=== PATIENT | male | born 1960 | race African-American/Black ===

== ENCOUNTER → 2019-04-09 | Outpatient (CLI) | payer BC ==
[~2019-04-09] MED LIST: IOHEXOL 240 MG/ML 50ML VIAL. PO ONE; IOHEXOL 300 MG/ML 75 ML VIAL. IV ONE
[2019-04-09 19:42] LABS: BASO % 0 % (0-3); EOS % 0 % (0-3); HEMATOCRIT 43.4 % (39.0-53.0); HEMOGLOBIN 14.1 g/dL (13.0-17.5); LYMPH # 0.4 x10^3/uL (1.0-4.8); LYMPH % 7 % (24-48); MEAN CORPUSCULAR HEMOGLOBIN 29 pg (25-35); MEAN CORPUSCULAR HGB CONC 33 g/dL (31-37); MEAN CORPUSCULAR VOLUME 89 fL (79-100); MONO # 0.4 x10^3/uL (0.0-1.1); MONO % 7 % (0-9); NEUT % 86 % (31-73); PLATELET COUNT 309 x10^3/uL (140-400); RED BLOOD COUNT 4.86 x10^6/uL (4.30-5.70); RED CELL DISTRIBUTION WIDTH 14.6 % (11.5-14.5); WHITE BLOOD COUNT 5.9 x10^3/uL (4.0-11.0)
[2019-04-09 19:52] LABS: ALBUMIN 4.2 g/dL (3.4-5.0); CALCIUM 9.2 mg/dL (8.5-10.1); GFR 92.2; POTASSIUM 3.9 mmol/L (3.5-5.1); TOTAL BILIRUBIN 0.5 mg/dL (0.2-1.0); TOTAL PROTEIN 8.5 g/dL (6.4-8.2)
--- NOTE | 2019-04-09 20:48 | RAD ---
Examination: CT of the abdomen pelvis with oral and IV contrast HISTORY: History of periumbilical pain, nausea, vomiting, diarrhea COMPARISON: None available Technique: Axial CT images of the abdomen pelvis were performed with oral and IV contrast. Coronal and sagittal reformats are performed. Exposure: One or more of the following individualized dose reduction techniques were utilized for this examination: 1. Automated exposure control 2. Adjustment of the mA and/or kV according to patient size 3. Use of iterative reconstruction technique. FINDINGS: Mild bibasilar lung airspace opacities likely atelectasis or infiltrates. No evidence of free air identified in the abdomen. The visualized liver, adrenals grossly appears unremarkable. The gallbladder is not identified. Calcified granulomas identified in the spleen. Mild fluid distended small bowel loops identified in the right lower quadrant of the abdomen with the enhancement of the small bowel loops with surrounding mild fat stranding likely enteritis. The appendix grossly appears unremarkable. Liquid stool identified in the colon. The bilateral kidneys enhance symmetrically. The visualized pancreas grossly appears unremarkable. The urinary bladder is mildly distended. Mild degenerative changes thoracolumbar spine. IMPRESSION: 1. Fluid distended small bowel loops identified in the right lower quadrant abdomen surrounding inflammatory fat stranding and mild enhancement of the wall likely enteritis. 2. Liquid stool identified in the colon likely diarrhea. Electronically signed by: Russell Nickerson MD (04/09/2019 8:45 PM) [facility]
== END | disposition home or self-care (01) ==
LOC: CT 18:30
PROVIDERS: ATTEND Family Medicine
DX: R14.0 Abdominal distension (gaseous) (principal); N32.89 Other specified disorders of bladder; D73.89 Other diseases of spleen
CPT/HCPCS: 36415; 74177; 80053; 85025; Q9966; Q9967

== ENCOUNTER → 2020-01-10 | Outpatient (CLI) | payer BC, OTHER ==
--- NOTE | 2020-01-10 10:11 | RAD ---
CT of the chest without contrast 01/10/2020 INDICATION: Shortness of breath. History of Covid 19 infection. COMPARISON STUDY: CT of the abdomen and pelvis April 09, 2019. TECHNIQUE: Multidetector CT imaging of the chest was performed without contrast. FINDINGS: Heart size is normal. No pericardial effusion is identified. Calcified right hilar lymph nodes noted. No pathologically enlarged mediastinal adenopathy is seen. No acute appearing interstitial and groundglass infiltrates are identified. No CT evidence for an acute viral pneumonia is identified. There is no pneumothorax or pleural effusion. Linear opacities in the lingula and left lower lobe are similar to comparison study. Linear area of consolidation in the medial basilar right lower lobe with areas of calcification noted. The areas only partially visualized on prior CT of the abdomen from March 2019. Visualized portions of this process are grossly stable. This is felt to most likely reflect scarring, with a component of chronic volume loss. A neoplastic etiology cannot be excluded based on available imaging. Recommend CT follow-up to ensure 2 years stability and/or PET CT for further characterization. Impression: Linear area of volume loss punctate areas of calcification the right lower lobe.This is felt to most likely reflect scarring, with a component of chronic volume loss. However, neoplastic etiology cannot be excluded based on available imaging. Recommend CT follow-up to ensure 2 years stability and/or PET CT for further characterization. CT DOSING PQRS STATEMENT: One or more of the following individualized dose reduction techniques were utilized for this examination: 1. Automated exposure control 2. Adjustment of the mA and/or kV according to patient size 3. Use of iterative reconstruction technique Electronically signed by: Joao Donald MD (01/10/2020 10:08 AM) [place] [id number]
== END | disposition home or self-care (01) ==
LOC: CT 09:15
PROVIDERS: ATTEND Internal Medicine Pulmonary Disease
DX: R06.02 Shortness of breath (principal)
CPT/HCPCS: 71250

== ENCOUNTER → 2020-01-21 | Outpatient (CLI) | payer BC, OTHER ==
--- NOTE | 2020-01-21 11:12 | RAD ---
MR#: [id number] Date of Study: 01/21/2020 Ordering Physician: RAMA CHANEL Referring Physician: MICHELE CARRION Tech: APPROVED REPORT Test Type: Exercise Stress Nurse/Tech: Victorino Becker Test Indications: Dyspnea Cardiac History: No known cardiac Resting Heart Rate: 82 bpm Resting Blood Pressure: 141/84mmHg Pretest Chest Pain: No chest pain Nurse/Tech Notes Pt has been short of breath since arturo Covid in August Stress Symptoms Dyspnea POST EXERCISE Reason for Termination: Dyspnea Target HR: 136 Max HR: 114 bpm 71% of Maximum Predicted HR: 160 bpm Exercise duration: 4:58 min:sec, 2 Stage Max Blood Pressure: 148/62mmHg Blood Pressure response to exercise: Normal blood pressure response during stress. Heart Rate response to exercise: Increase Chest Pain: No. Arrhythmia: No. ST Change: No. INTERPRETATION Stress EKG Conclusion: Baseline EKG showed sinus rhythm. No ischemic changes at peak stress. No arr hythmias. Conclusion 1. Treadmill exercise stress electrocardiogram did not show any diagnostic changes of ischemia. 2. However, patient achieved only 71% of predicted maximum heart rate, making the test inconclusive. Signed by : Swapnil Corea, Electronically Approved : 01/21/2020 11:12:04
--- NOTE | 2020-01-22 09:37 | CARD ---
MR#: [id number] Date of Study: 01/21/2020 Ordering Physician: RAMA CHANEL, Referring Physician: RAMA CHANEL, Tech: Jennifer Jordan APPROVED REPORT EXAM: Two-dimensional and M-mode echocardiogram with Doppler and color Doppler. Other Information Quality : AverageHR: 77bpm INDICATION Dyspnea 2D DIMENSIONS RVDd2.7 (2.9-3.5cm)Left Atrium(2D)2.9 (1.6-4.0cm) IVSd0.8 (0.7-1.1cm)Aortic Root(2D)4.1 (2.0-3.7cm) LVDd4.7 (3.9-5.9cm)LVOT Diameter2.3 (1.8-2.4cm) PWd0.8 (0.7-1.1cm)LVDs2.7 (2.5-4.0cm) FS (%) 42.3 %SV76.5 ml LVEF(%)73.3 (>50%) Aortic Valve AoV Peak Amish.116.3cm/sAoV VTI25.8cm AO Peak GR.5.4mmHgLVOT Peak Amish.93.1cm/s LVOT VTI 23.19cmAO Mean GR.3mmHg ACE (VMAX)3.69sv5ICT (VTI)3.79cm2 AI P 1/2 [id number] Mitral Valve MV E Rsxgcrai19.0cm/sMV E Peak Gr.2mmHg MV DECEL [id number] A Yjinpvuj15.1cm/s MV E Mean Gr.1mmHgE/A Ratio0.8 Pulmonary Valve PV Peak Dvwanygx62.9cm/sPV Peak Grad.2mmHg Tricuspid Valve TR P. Amxqassv691eb/sRAP LVIHZCVT7cmZi TR Peak Gr.07xhMrEPDD40zeXz Pulmonary Vein S1 Dexkocbo66.0cm/sD2 Qptizuby80.2cm/s LEFT VENTRICLE The left ventricle is normal size. There is normal left ventricular wall thickness. The left ventricu lar systolic function is normal. The Ejection Fraction is 55-60%. There is normal LV segmental wall m otion. Transmitral Doppler flow pattern is Grade I-abnormal relaxation pattern. RIGHT VENTRICLE The right ventricle is normal size. There is normal right ventricular wall thickness. The right ventr icular systolic function is normal. ATRIA The left atrium size is normal. The right atrium size is normal. The interatrial septum is intact wit h no evidence for an atrial septal defect or patent foramen ovale as noted on 2-D or Doppler imaging. AORTIC VALVE The aortic valve is normal in structure and function. Doppler and Color Flow revealed trace aortic re gurgitation. There is no significant aortic valvular stenosis. Calculated aortic valve area is 3.8 cm 2 with maximum pressure gradient of 6 mmHg and mean pressure gradient of 3 mmHg. MITRAL VALVE The mitral valve is normal in structure and function. There is no evidence of mitral valve prolapse. There is no mitral valve stenosis. Doppler and Color Flow revealed no mitral valve regurgitation note d. TRICUSPID VALVE The tricuspid valve is normal in structure and function. Doppler and Color Flow revealed trace tricus pid regurgitation with an estimated PAP of 21 mmHg. There is no tricuspid valve stenosis. PULMONIC VALVE The pulmonic valve is not well visualized. Doppler and Color Flow revealed trace pulmonic valvular re gurgitation. GREAT VESSELS The aortic root is mildly enlarged. The IVC is normal in size and collapses >50% with inspiration. PERICARDIAL EFFUSION There is no evidence of significant pericardial effusion. Critical Notification Critical Value: No <Conclusion> The left ventricular systolic function is normal. The Ejection Fraction is 55-60%. There is normal LV segmental wall motion. Transmitral Doppler flow pattern is Grade I-abnormal relaxation pattern. Trace tricuspid regurgitation with an estimated PAP of 21 mmHg. There is no evidence of significant pericardial effusion. Signed by : Sawpnil Corea, Electronically Approved : 01/22/2020 09:36:46
== END ==
LOC: NM 09:56
PROVIDERS: ATTEND Internal Medicine Pulmonary Disease
DX: R06.02 Shortness of breath (principal)
CPT/HCPCS: 93017; 93306

== ENCOUNTER → 2020-06-26 | Outpatient (CLI) | payer OTHER ==
[2020-06-26] MEDS: IOHEXOL 350 MG/ML 100 ML VIAL. IV ONE (10:56)
--- NOTE | 2020-06-26 18:02 | RAD ---
Study: CT CHEST WITH CONTRAST History: Abnormal CT, cough Comparison: CT chest 01/10/2020 Technique: Helical CT of the chest performed after the administration of 75 mL Omnipaque 350 intrave nous contrast. Coronal and sagittal reformations were obtained. One or more of the following individualized dose reduction techniques were utilized for this examinat ion: 1. Automated exposure control 2. Adjustment of the mA and/or kV according to patient size 3. Use of iterative reconstruction technique. Findings: Heart/Systemic Vasculature: Heart is normal in size. No pericardial effusion. The aortic root appears prominent measuring 4.1 cm in diameter at the sinus of Valsalva on coronal images, however there is motion artifact limiting the exam. There also appears to be a small contrast-filled communication bet ween the posterior portion of the thoracic aortic arch and the main pulmonary artery suspicious for a patent ductus arteriosus (image [id number] sagittal series; image 51-48 coronal series). Mediastinum: No mediastinal or hilar lymphadenopathy. There are calcified left hilar lymph nodes. Lungs: Bandlike confluent opacities with calcifications extending from the hilum there are mild bandl paris opacities in the left lower lobe and lingula that are likely atelectasis and similar to prior exa m. In the posterior right lower lobe is unchanged measuring approximately 3.4 x 1.3 cm (image 54 seri es 4). Neck/Axilla/Body Wall: Unremarkable. No axillary lymphadenopathy. Upper Abdomen: There are calcified splenic granulomas. Bones: No acute osseous abnormality. IMPRESSION: 1. Unchanged bandlike confluent opacities in the right lower lobe with associated calcifications. Thi s may be sequela of prior granulomatous disease or other infectious/plantar process. Milder bandlike opacities in the left lower lobe and lingula are unchanged and may be scarring or atelectasis. Consid er six-month follow-up CT chest to ensure stability. 2. The aortic root appears mildly enlarged measuring 4.1 cm, however there is motion artifact mildly limiting the exam. 3. Suspected incidental small patent ductus arteriosus. Electronically signed by: Domenica White MD (06/26/2020 5:59 PM) [id number]
== END ==
LOC: CT 10:32
PROVIDERS: ATTEND Internal Medicine Pulmonary Disease
DX: R91.8 Other nonspecific abnormal finding of lung field (principal); I70.0 Atherosclerosis of aorta; I89.8 Other specified noninfective disorders of lymphatic vessels and lymph nodes; R05 Cough
CPT/HCPCS: 71260; Q9967